=== PATIENT | female | born 1950 | race Two or more races ===

== ENCOUNTER → 2016-12-09 | Outpatient (CLI) | payer MEDICARE, OTHER ==
[~2016-12-09] MED LIST: APR50 PO; CALC600T PO; CALC667C PO; CARV12.579 PO; CNC30T PO; LEVO125T75 PO; NIFE30TA60 PO; PANT40TA4 PO; PRED5 PO; ROSU20TA PO; [UNRECOGNIZED DRUG - CODE] PO
--- NOTE | 2016-12-10 08:42 | RADRPT ---
PROCEDURE: XR right knee. CLINICAL INDICATION: Knee pain TECHNIQUE: AP weightbearing, PA weightbearing, lateral weightbearing and sunrise views are availab le for review. COMPARISON: None available FINDINGS: There is severe osteoarthrosis involving the lateral tibial femoral compartment and mild osteoarthro sis of having the patellofemoral compartment. This is associated with joint space narrowing, subchon dral sclerosis and osteophytosis. There is otherwise normal mineralization, architecture and alignment. No fractures are identified. No osseous lesions are identified. The soft tissues are unremarkable. IMPRESSION: Severe osteoarthrosis involving the lateral tibial femoral compartment and mild osteoarthrosis invol ving the patellofemoral compartment. RPTAT: HGDB .Shukri Sands MD, MD Date Time Electronically viewed and signed by .Shukri Sands MD, on 12/10/2016 08:42 .B/
== END | disposition home or self-care (01) ==
LOC: HKI 10:10
PROVIDERS: ATTEND Orthopaedic Surgery
DX: M17.11 Unilateral primary osteoarthritis, right knee (principal)
CPT/HCPCS: 73564; G0463

== ENCOUNTER 2017-01-08 13:50 | Inpatient (IN) | payer MEDICARE, OTHER ==
[~2017-01-08] VITALS: Ht 162.6 cm; Wt 55.3 kg
[2017-01-08 14:09] VITALS: BMI 20.8
[2017-01-14] VITALS (34 sets, daily range): BP systolic 121–148; BP diastolic 47–74; PULSE 52–75; RESP 8–57; Ht 162.6 cm; Wt 55.3 kg
[2017-01-14] MEDS ORDERED: ETOMIDATE 20 MG INJ ONE (07:00)
[2017-01-14] MEDS ORDERED: AMLO-147 PO (10:35)
[2017-01-14] MEDS ORDERED: PRED1TAB2 PO (10:36)
[2017-01-14] MEDS ORDERED: SIMV20TA PO (10:38)
[2017-01-14] MEDS ORDERED: FE F1TAB7 PO (10:39)
[2017-01-14] MEDS ORDERED: PROPOFOL 100 ML ONE (10:46)
[2017-01-14] MEDS ORDERED: NEOSTIGMINE 3 MG/3 ML SYRINGE ONE (10:46)
[2017-01-14] MEDS ORDERED: GLYCOPYRROLATE 1 MG INJ ONE (10:46)
[2017-01-14] MEDS ORDERED: FENTAnyl 50 MCG/ML VIAL ONE ×2 (10:46→11:56)
[2017-01-14] MEDS ORDERED: ROCURONIUM 50 MG INJ ONE (10:46)
[2017-01-14] MEDS ORDERED: MIDAZOLAM 1 MG/ML 2 ML INJ ONE (10:46)
[2017-01-14] MEDS ORDERED: LIDOCAINE 2% (SDV) 5 ML INJ ONE (10:46)
[2017-01-14] MEDS ORDERED: ONDANSETRON 4 MG INJ ONE (10:47)
[2017-01-14] MEDS ORDERED: DEXAMETHASONE 4 MG/ML 1 ML INJ ONE (10:47)
[2017-01-14] MEDS ORDERED: CELECOXIB 400 MG PO X1 DOSE PO ONE (11:00)
[2017-01-14] MEDS ORDERED: LACTATED RINGER'S 1,000 ML IV SCH (11:00)
[2017-01-14] MEDS ORDERED: oxyCODONE (CR) 10 MG TAB [oxyCONTIN] X1 DOSE PO ONE (11:00)
[2017-01-14] MEDS ORDERED: VANCOMYCIN 1 GM/NS 250 ML X1 BEFORE INCISION IVPB ONE (11:00)
[2017-01-14] MEDS ORDERED: SOD CHLORIDE 0.9% IV ONE (11:00)
[2017-01-14] MEDS ORDERED: PAIN COCKTAIL-CEFUROXIME IRR ONE ×7 (11:00)
[2017-01-14] MEDS ORDERED: TRANEXAMIC ACID IVPB ONE ×3 (11:00→21:30)
[2017-01-14] MEDS ORDERED: BUPIVACAINE LIPOSOME/PF 266 MG/20 ML VIAL INFIL ONE (11:00)
[2017-01-14] MEDS ORDERED: PREGABALIN 300 MG PO X1 PO ONE (11:00)
[2017-01-14] MEDS ORDERED: SOD CHLORIDE 0.9% IVPB ONE ×3 (11:00→21:30)
[2017-01-14] MEDS ORDERED: traMADOL 50 MG TAB X 1 DOSE PO ONE (11:00)
[2017-01-14] MEDS ORDERED: TRANEXAMIC ACID IV ONE (11:00)
[2017-01-14] MEDS ORDERED: PROPOFOL 20 ML ONE (11:55)
--- NOTE | 2017-01-14 12:03 | HPN ---
Date/Time of Note Date/Time of Note DATE: 01/14/17 TIME: 12:02 Interval H&P Admission Note Pt. seen H&P reviewed: No system changes No change from H&P by Dr. Jose Luis Villalta on 01/09/17 KIM BEAUCHAMP MD Jan 14, 2017 12:03
[2017-01-14] MEDS ORDERED: METOCLOPRAMIDE 10 MG INJ ONE (12:08)
[2017-01-14] MEDS ORDERED: SODIUM CL BACTERIOSTATIC 30 ML INJ ONE ×2 (12:17→12:44)
[2017-01-14] MEDS ORDERED: VANCOMYCIN 1 GM INJ ONE ×3 (12:18→14:02)
[2017-01-14] MEDS ORDERED: POLYMYXIN B 500000 UNIT INJ ONE (12:18)
[2017-01-14] MEDS ORDERED: CEFAZOLIN 1 GM INJ ONE (12:21)
[2017-01-14] MEDS ORDERED: METOCLOPRAMIDE 10 MG INJ IV ONE (12:30)
[2017-01-14] MEDS ORDERED: METOCLOPRAMIDE 10 MG INJ IM ONE (12:30)
[2017-01-14] MEDS ORDERED: EXPAREL NOTE (BUPIVICAINE LIPOSOMAL) XX SCH (13:00)
[2017-01-14] MEDS ORDERED: TOBRAMYCIN 1.2 GM POWDER ONE (13:12)
[2017-01-14] MEDS ORDERED: HYDROmorphONE (0.2 MG/ML) 10ML SYG IV PRN ×3 (13:30)
[2017-01-14] MEDS ORDERED: LABETALOL HCL 20MG INJ IV PRN (13:30)
[2017-01-14] MEDS ORDERED: DIPHENHYDRAMINE 50 MG INJ IV PRN (13:30)
[2017-01-14] MEDS ORDERED: hydrALAzine 20 MG INJ IV PRN (13:30)
[2017-01-14] MEDS ORDERED: FENTAnyl 50 MCG/ML VIAL IV PRN ×3 (13:30)
[2017-01-14] MEDS ORDERED: MIDAZOLAM 1 MG/ML 2 ML INJ IV PRN (13:30)
[2017-01-14] MEDS ORDERED: ONDANSETRON 4 MG INJ IV PRN (13:30)
[2017-01-14] MEDS ORDERED: TRIMETHOBENZAMIDE 100 MG/ML VIAL IM PRN (13:30)
[2017-01-14] MEDS ORDERED: EPHEDrine SULFATE 50 MG/5 ML SYG IV PRN (13:30)
[2017-01-14] MEDS ORDERED: BACITRACIN 50000 UNITS INJ IRR ONE (14:14)
--- NOTE | 2017-01-14 15:02 | RADRPT ---
PROCEDURE: Intraoperative imaging of the right knee with fluoroscopy. CLINICAL INDICATION: Right knee pain. Intraoperative. TECHNIQUE: 9 images of the right knee were obtained in the operating room with an image intensifie r. No radiologist was in attendance. 0.2 minutes of fluoroscopy time was used. COMPARISON: 01/08/2017. FINDINGS: Images demonstrate a total right knee arthroplasty in position with antibiotic beads and surgical dr guanako. IMPRESSION: 1. Intraoperative imaging of the right knee. RPTAT: QQ .Bigg Ro MD, MD Date Time Electronically viewed and signed by .Bigg Ro MD, MD on 01/14/2017 15:01 .R/
[2017-01-14] MEDS: LACTATED RINGER'S 1,000 ML IV SCH ×2 (15:09→22:57)
[2017-01-14] MEDS ORDERED: BACITRACIN 50000 UNITS INJ ONE (15:15)
--- NOTE | 2017-01-14 15:25 | PN ---
Date/Time of Note Date/Time of Note DATE: 01/14/17 TIME: 15:23 Assessment/Plan Assessment/Plan Assessment/Plan Stable in PACU, s/p right TKA -continue abx x 72 hours until final culture results -pain meds as needed -ASA/SCDs for DVT prophylaxis -OOB with PT -check AM labs -monitor drain -follow up on intra-operative culture results -d/c boyd in AM XR of the right knee is pending at this time Subjective 24 Hr Interval Summary Doing well in PACU. Moving lower extremities. Denies pain. Drowsy from anesthesia. Exam/Review of Systems Vital Signs Vitals Vital Signs Date Time Temp Pulse Resp B/P Pulse Ox O2 Delivery O2 Flow Rate FiO2 01/14/17 10:43 97.6 65 16 138/63 98 Intake and Output 01/13/17 01/13/17 01/14/17 15:00 23:00 07:00 Intake Total 0 ml Balance 0 ml Exam Free Text/Dictation Hemovac: minimal Dressing dry Incision clean, dry, and intact without redness or drainage Thigh soft 5/5 Quadriceps, Tibialis Anterior, EHL, Gastroc, Soleus, Peroneals Normal sensation Palpable DT/PT, CR <2 sec No distal edema Results Result Diagram: 01/14/17 1035 LUISA WYLIE PA-C Jan 14, 2017 15:25
--- NOTE | 2017-01-14 15:26 | OPR ---
Date/Time of Note Date/Time of Note DATE: 01/14/17 TIME: 15:24 Operative Report Free Text/Dictation Dictation # [id number] Procedure Date: Jan 15, 2017 Preoperative Diagnosis Right Knee OA Postoperative Diagnosis Same Operation Performed Right TKA Surgeon: KIM BEAUCHAMP MD marketing assistant manager: LUISA WYLIE PA-C Anesthesia: general, spinal Anesthesiologist: Guanakito Spann M.D. Tourniquet Time: 74 min Estimated Blood Loss: 50 - 100 ml's Specimens Bone and soft tissue, and aerobic and anaerobic culture x 2 Tubes/Drains Hemovac x 1 Complications: None Pt Condition Post Procedure: stable Disposition: PACU KIM BEAUCHAMP MD Jan 14, 2017 15:25
[2017-01-14] MEDS ORDERED: HYDROmorphONE 1 MG/ML SYG IV PRN (15:30)
[2017-01-14] MEDS ORDERED: DIPHENHYDRAMINE 25 MG CAP PO PRN (15:30)
[2017-01-14] MEDS ORDERED: oxyCODONE 5 MG TAB PO PRN (15:30)
[2017-01-14] MEDS ORDERED: BISACODYL 10 MG SUPP PR PRN (15:30)
[2017-01-14] MEDS ORDERED: ASPIRIN (EC) 325 MG TAB PO ONE (15:30)
[2017-01-14] MEDS ORDERED: NA PHOSPHATE/BIPHOS 133 ML ENEMA PR PRN (15:30)
[2017-01-14] MEDS ORDERED: MAGNESIUM HYDROXIDE 30ML CUP PO PRN (15:30)
[2017-01-14] MEDS ORDERED: NACL 0.9% 3 ML SYG IV SCH (15:30)
--- NOTE | 2017-01-14 15:49 | OPR ---
DATE OF OPERATION: 01/14/2017 PREOPERATIVE DIAGNOSIS: Right knee osteoarthritis. POSTOPERATIVE DIAGNOSIS: Right knee osteoarthritis. OPERATION PERFORMED: Right total knee arthroplasty. SURGEON: Kim Carroll MD SALES MANAGEMENT INTERN: MARCO A Collins COMPONENTS USED: DePuy size 3 TC3 femur with a neutral 5-degree bolt and a 16 mm diameter x 75 mm stem, size 2 M.B.T. revision tibial tray with a 13 mm x 60 mm stem, 17.5 mm polyethylene insert, and a 35 patellar button. ANESTHESIA: Spinal plus general endotracheal intubation, plus periarticular injection. ANESTHESIOLOGIST: Guanakito Spann MD TOURNIQUET TIME: 74 minutes. ESTIMATED BLOOD LOSS: 50 mL. INTRAVENOUS FLUIDS: 1200 mL of crystalloids. SPECIMENS: Bone and soft tissue. DRAINS: Hemovac x1. COMPLICATIONS: None. DISPOSITION: The patient tolerated the procedure well and was taken to the recovery room in stable condition. INDICATIONS: The patient is a 66-year-old woman who has had progressive worsening pain in the right knee with radiographic evidence of severe osteoarthritis. She has failed nonsurgical means of treatment to control her pain including activity modifications, pain medications, intra-articular injections and ambulatory assist devices. Despite these measures, she has had worsening pain. I felt she would benefit from a total knee arthroplasty The risks, benefits, and alternatives of the procedure were explained in detail to the patient. I explained the risks of the surgery to include but not be limited to, bleeding and possible need for blood transfusion; infection; pain; stiffness; neurovascular injury with possible numbness, weakness, and/or paralysis anywhere from the knee down to the toes; fracture; instability; dislocation; wear and/or loosening of the prosthesis and possible need for future revision; blood clots; pulmonary embolism; and anesthetic complications such as heart attack, stroke, GI bleed, pneumonia, and/or . Ample time was allowed for the patient to ask questions, all of which were addressed and answered. The patient understood the risks involved and wished to proceed. Informed consent was signed prior to the procedure. PROCEDURE: The patient's right knee was initialed with a marking pen in the preoperative area to identify the correct operative site. The patient was brought to the [facility] where a spinal anesthetic was administered. T he patient was then anesthetized and intubated. A Joe catheter was placed. A timeout was performed to confirm that the right leg was the correct operative site. The patient was given 2 g of Ancef within one hour prior to the procedure. A tourniquet was placed on the operative proximal thigh. The operative knee and lower extremity were prepped and draped in the usual sterile fashion. The operative lower extremity was elevated and exsanguinated with an Esmarch tourniquet. The proximal thigh tourniquet was inflated to 300 mmHg. The knee was flexed. A midline incision was made and carried down through the subcutaneous tissue and fat with sharp dissection. Limited medial and lateral flaps were raised. Approach was median parapatellar arthrotomy performed. Synovial fluid was normal in color and consistency. The patella was everted and the knee flexed. There were severe tricompartmental osteoarthritic changes noted. A medial release was performed at the joint line to the midcoronal plane. The ACL and PCL and remnants of the menisci were excised. The stepped drill was used to open up the femoral canal which was irrigated and sucked dry. The intramedullary guide bryce was passed up the femur, and the distal cutting block was pinned into place for a 6 degree valgus cut, taking 10 mm of bone off distally. The oscillating saw was used to make the cut. The tibia was subluxed anteriorly. The tibial cutoff jig was placed over the center of the talus distally and over the junction of the medial and middle third of the tibial tubercle proximally. The guide was pinned into place and the oscillating saw was used to make the cut. The tibia was sized. The extension gap was checked and accommodated a 17.5 mm spacer block with the knee in full extension. There was no varus or valgus instability. At this point, the femur was sized with the posterior referencing guide. Two holes were drilled in 3 degrees of external rotation. The two holes were in line with the transepicondylar axis, perpendicular to [place]'s line, and in line with the tibial cutoff jig brought up with the knee flexed 90 degrees and tensed with 2 lamina spreaders, suggesting the femoral rotation was correct. The four-in-one cutting block was pinned into place. The anterior and posterior cuts and chamfer cuts were made with the oscillating saw. The flexion gap was checked and accommodated the 17.5 mm spacer block at 90 degrees. There was no varus or valgus instability, suggesting the flexion and extension gaps were now equal. The central box was cut out on the femur. The tibia was drilled and punched in proper rotation. Trial components were placed into position with a trial insert. The patella was cut from 20 mm down to 12 mm and sized. Three holes were drilled and the trial button placed in position. With all the trials now in place, the knee was taken through range of motion and came to full extension as evidenced by the fact that with the foot on my abdomen and axial loading, there was no tendency for the knee to flex. The knee was able to be flexed to 125 degrees with good patellar tracking with no lateral tilt or subluxation. At this point, I was satisfied with the overall range of motion, stability, and patellar tracking. The trials were removed. The real components were opened. Two bags of cement were mixed, one with and one without premixed antibiotic. The knee was irrigated with antibiotic saline and sucked dry. Once the cement was in a doughy stage, the real components were cemented into place. The knee was held in full extension, and the patellar component was held with a patellar clamp. All excess cement was removed with curettes. As the cement was hardening, the synovial/capsular layer was infiltrated with a mixture of 150 mg of 0.5% Bupivacaine, 8 mg of Duramorph, 300 mcg of epinephrine, 30 mg of Toradol, 100 mcg of clonidine, 750 mg of cefuroxime and 86 mL of normal saline, followed by an injection of 266 mg of liposomal Bupivacaine. A Hemovac drain was placed in the deep portion of the wound and brought out the anterolateral thigh. Once the cement was completely hardened, the trial liner was removed, and the real insert was opened. The tourniquet was let down, and there was good hemostasis. The knee was then irrigated with a mixture of Betadine/saline and then antibiotic saline with pulsatile lavage. The real insert was impacted into the tibia and reduced onto to the femur. Upon removal of the trial insert, the medial epicondyle peeled back slightly. After the real insert was placed and reduced into position, a single 6.5 mm screw with a washer was placed to hold the medial epicondyle peel back into place. Stimulan beads with Vancomycin and Tobramycin were placed in the knee joint. The arthrotomy was closed with a few interrupted #1 Ethibond in a figure-of- eight fashion, and then closed in a watertight fashion with a running #2 Stratafix suture. Knee flexion was checked against gravity and came to 125 degrees. The subcutaneous layer was irrigated and closed with 2-0 Stratafix, and then 3-0 Vicryl and then luis on the skin. The wound was covered with an occlusive dressing, and secured with cast padding and a bias dressing. The drain was secured with 3-0 nylon. The sponge and needle counts were correct at the end of the case. The patient was then awakened, extubated, and taken to the recovery room in stable condition. Dictated By: KIM ALLEN/RONALD Conf#: [id number] DID#: [id number] MTDD
[2017-01-14 16:10] LABS: HEMATOCRIT 32.9 % (37.0-47.0); HEMOGLOBIN 10.5 g/dl (12.0-16.0)
--- NOTE | 2017-01-14 16:11 | RADRPT ---
PROCEDURE: Right knee radiographs. CLINICAL INDICATION: Right knee pain. Postop. TECHNIQUE: Two views. Frontal and lateral. COMPARISON: Intraoperative imaging done earlier the same day. FINDINGS: There is no fracture or dislocation. Anterior skin luis and surgical drain are noted. Antibiotic beads are noted anteriorly. There is a total right knee arthroplasty which appears satisfactory. There is no lytic or blastic lesion. There is no joint effusion. IMPRESSION: 1. Satisfactory postoperative appearance of the right knee. RPTAT: QQ .Bigg Ro MD, MD Date Time Electronically viewed and signed by .Bigg Ro MD, MD on 01/14/2017 16:10 .R/
[2017-01-14] MEDS: CEFAZOLIN 2 GM/50 ML (PMX) 50 ML IVPB SCH ×2 (16:18→23:30)
[2017-01-14 16:56] LABS: CALCIUM 8.8 mg/dl (8.4-10.2); CREATININE 4.7 mg/dl (0.44-1.00); POTASSIUM 5.2 mmol/L (3.5-5.1)
[2017-01-14 17:11] LABS: ADD UMIC YES; URINE BILIRUBIN (Dip) NEGATIVE (NEGATIVE); URINE BLOOD (Dip) NEGATIVE (NEGATIVE); URINE COLOR LT. YELLOW (YELLOW); URINE GLUCOSE (Dip) NEGATIVE (NEGATIVE); URINE KETONES (Dip) NEGATIVE (NEGATIVE); URINE LEUKOCYTE ESTERASE (Dip) NEGATIVE (NEGATIVE); URINE NITRITE (Dip) NEGATIVE (NEGATIVE); URINE TOTAL PROTEIN (Dip) 2+ (NEGATIVE); URINE UROBILINOGEN (Dip) 0.2 E.U./dL (0.1-1.0)
[2017-01-14 17:46] LABS: SQUAMOUS EPITHELIAL CELL,UR FEW; URINE RBCS 0-2 /HPF (0)
[2017-01-14] MEDS: CALCIUM ACETATE 667 MG CAP PO SCH ×2 (17:55→22:56)
[2017-01-14] MEDS: traMADol 50 MG TAB PO SCH (18:00)
[2017-01-14] MEDS: PANTOPRAZOLE (EC) 40 MG TAB PO SCH ×2 (18:00→22:55)
[2017-01-14] MEDS: DOCUSATE SODIUM 100 MG CAP PO SCH ×2 (21:00→22:55)
[2017-01-14] MEDS: PREGABALIN 25 MG CAP PO SCH ×2 (21:00→22:56)
[2017-01-14] MEDS: ATORVASTATIN 10 MG TAB PO SCH ×2 (21:00→22:56)
[2017-01-14] MEDS: ONDANSETRON 4 MG INJ IV PRN (21:35)
[2017-01-15] VITALS (10 sets, daily range): BP systolic 125–155; BP diastolic 60–75; PULSE 59–64; RESP 16–20
[2017-01-15] MEDS: traMADol 50 MG TAB PO SCH ×5 (00:55→20:53)
[2017-01-15] MEDS: CEFAZOLIN 2 GM/50 ML (PMX) 50 ML IVPB SCH (00:55)
[2017-01-15 05:46] LABS: HEMATOCRIT 30.7 % (37.0-47.0); HEMOGLOBIN 9.6 g/dl (12.0-16.0)
[2017-01-15 06:13] LABS: POTASSIUM 5.5 mmol/L (3.5-5.1)
[2017-01-15 06:16] LABS: CREATININE 4.91 mg/dl (0.44-1.00)
[2017-01-15 06:17] LABS: CALCIUM 9.2 mg/dl (8.4-10.2)
--- NOTE | 2017-01-15 07:46 | CONS ---
DATE OF ADMISSION: 01/14/2017 DATE OF CONSULTATION: 01/14/2017 TYPE OF CONSULTATION: Nephrology. REASON FOR CONSULTATION: End-stage renal disease. 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 The patient has had failure of her graft and is currently on dialysis with access of a left AV fistula. The patient is on dialysis twice weekly, last hemodialysis was ____ Friday. The patient also has a history of hypertension and arthritis, who was brought to [facility] and underwent electiv e total right knee arthroplasty. The patient's surgeon was Dr. Carroll. The patient had no intraope rative complications. Postoperatively, the patient is currently resting and is currently stable. D enies any fevers, chills, nausea, or vomiting. No shortness of breath. PAST MEDICAL HISTORY: As stated above, history of end-stage renal disease, history of hypertension, history of arthritis. PAST SURGICAL HISTORY: Status post kidney transplant ____ years ago. MEDICATIONS: The patient's medications have been reviewed. SOCIAL HISTORY: Lives at home. FAMILY HISTORY: No family history of kidney disease or heart disease. REVIEW OF SYSTEMS: A 14-point review of systems was conducted. Pertinent positives stated in HPI, otherwise negative. PHYSICAL EXAMINATION: VITAL SIGNS: Blood pressure is 140/58, pulse 72, respirations 16. HEENT: Head is normocephalic. Pupils reactive to light. NECK: Supple. HEART: Regular rate. LUNGS: Show diminished breath sounds at the base. ABDOMEN: Soft, nontender to palpation. No rebound or guarding. EXTREMITIES: Negative for clubbing, cyanosis or edema in the left leg. Right leg has a dressing in place. It is clean, dry and intact. DERMATOLOGIC: No rashes. MUSCULOSKELETAL: No joint effusions. NEUROLOGIC: Limited exam due to the patient's lack of cooperation. LABORATORY DATA: Shows sodium 139, potassium 5.2, chloride 99, bicarbonate 26, BUN 72, creatinine 4 .7. Hemoglobin 10.5, hematocrit 32.9. The patient's x-ray shows satisfactory postoperative appeara nce of the right knee. ASSESSMENT AND PLAN: This is a 66-year-old female who presents with: 1. End-stage renal disease. The patient is on dialysis Friday and Friday. Last hemodialysis was _ ___. The patient is currently euvolemic on exam; however, is hyperkalemic on laboratory data. We w ill order dialysis today for 2 hours on a 2K bath, calcium 2.5 with no ultrafiltration. 2. Anemia of chronic kidney disease. Hemoglobin levels are stable. We will continue to monitor. We will give Epogen with dialysis. 3. Hyperkalemia, secondary to end-stage renal disease. We will place the patient on a renal diet a nd will be dialyzed on a 2 potassium bath. 4. Mineral bone disorder. We will monitor calcium and phosphorus levels. 5. Hypertension. We will continue current blood pressure regimen. 6. Hypothyroidism. We will continue Synthroid. 7. Status post total right knee arthroplasty. The patient will be managed postoperatively by Dr. Mónica mortensen. We will continue pain control. 8. Dyslipidemia. Continue statin therapy. 9. History of cadaveric renal transplant. The patient is on low-dose prednisone. We will continue . Thank you, Dr. Carroll, for this interesting consultation. It will be a pleasure to follow the patie nt with you throughout the hospital course. Dictated By: LAMONT DUNHAM DO NR/RONALD Conf#: [id number] DID#: [id number]
[2017-01-15] MEDS: AMLODIPINE 10 MG TAB PO SCH (09:00)
--- NOTE | 2017-01-15 09:02 | PN ---
Date/Time of Note Date/Time of Note DATE: 01/15/17 TIME: 09:00 Assessment/Plan Lines/Catheters IV Catheter Type (from Nrsg): Peripheral IV Joe in Place (from Nrsg): Yes Assessment/Plan Assessment/Plan Stable POD #1, s/p right TKA -cont abx x 72 hours -pain meds as needed -OOB with PT -monitor drains -check AM labs -will undergo hemodialysis today -ARU eval -d/c planning. ARU versus [facility] upon discharge Subjective 24 Hr Interval Summary Doing well overnight. No acute events. Denies significant pain. VSS, afebrile. H &H stable but K+ is elevated. Will plan for dialysis today. Would like AR[facility] eval versus [facility] upon discharge. Exam/Review of Systems Vital Signs Vitals Vital Signs Date Time Temp Pulse Resp B/P Pulse Ox O2 Delivery O2 Flow Rate FiO2 01/15/17 08:18 98.1 68 16 133/61 99 01/14/17 20:00 Nasal Cannula 2.0 Intake and Output 01/14/17 01/14/17 01/15/17 15:00 23:00 07:00 Intake Total 205.5 ml 1005.5 ml 1105.5 ml Output Total 210 ml 220 ml Balance 205.5 ml 795.5 ml 885.5 ml Exam Free Text/Dictation Hemovac: 130cc Dressing dry Incision clean, dry, and intact without redness or drainage Thigh soft 5/5 Quadriceps, Tibialis Anterior, EHL, Gastroc, Soleus, Peroneals Normal sensation Palpable DT/PT, CR <2 sec No distal edema Results Result Diagram: 01/15/170 01/15/17 0430 LUISA WYLIE PA-C Jan 15, 2017 09:02
[2017-01-15 09:28] LABS: ADD UMIC YES; URINE BILIRUBIN (Dip) NEGATIVE (NEGATIVE); URINE BLOOD (Dip) NEGATIVE (NEGATIVE); URINE COLOR LT. YELLOW (YELLOW); URINE GLUCOSE (Dip) NEGATIVE (NEGATIVE); URINE KETONES (Dip) NEGATIVE (NEGATIVE); URINE LEUKOCYTE ESTERASE (Dip) TRACE (NEGATIVE); URINE NITRITE (Dip) NEGATIVE (NEGATIVE); URINE TOTAL PROTEIN (Dip) 1+ (NEGATIVE); URINE UROBILINOGEN (Dip) 0.2 E.U./dL (0.1-1.0)
[2017-01-15 09:39] LABS: SQUAMOUS EPITHELIAL CELL,UR OCCASIONAL; URINE RBCS NONE SEEN /HPF (0)
--- NOTE | 2017-01-15 10:00 | PN ---
DATE: 01/15/2017 SUBJECTIVE: The patient is stable. He has complaints of mild headache, but no other acute events n oted. No hemoptysis, hematemesis, or hematochezia. The patient yesterday refused hemodialysis. No other events noted. Patient's pain well controlled. OBJECTIVE: VITAL SIGNS: Blood pressure 125/60, respirations 20, pulse 66, temperature 97.8. HEENT: Head is normocephalic. NECK: Supple. HEART: Regular rate. LUNGS: Show diminished breath sounds at the base. ABDOMEN: Soft, nontender to palpation, no rebound or guarding. EXTREMITIES: Negative for clubbing, cyanosis, no edema on the left leg. Right lower extremity has dressing clean, dry, intact. NEUROLOGIC: No focal deficits. DERMATOLOGIC: No rashes. MUSCULOSKELETAL: Positive AV fistula in the left upper extremity with good thrill and bruit. LABORATORY DATA: Showed sodium 136, potassium 5.5, BUN 74, creatinine 4.91. White count 9.6, hemog lobin 30.7. ASSESSMENT AND PLAN: 1. End-stage renal disease. The patient is on dialysis Friday, Friday. Last hemodialysis Friday. Plan for dialysis today for hypokalemia with dialysis for 2 hours, 2K bath, calcium 2.5 with minima l ultrafiltration. 2. Anemia of chronic kidney disease. Will give Epogen with hemodialysis. Monitor H and H levels. 3. Hypokalemia secondary to end-stage renal disease. The patient will be dialyzed 2 potassium bath . Continue renal diet. 4. Mineral bone disorder. Monitor calcium and phosphorus levels. 5. History of cadaveric renal transplant. Continue low-dose prednisone. 6. Hypertension. Continue current blood pressure regimen. 7. Hypothyroidism. Continue Synthroid. 8. Dyslipidemia. Continue statin therapy. 9. Status post total right knee arthroplasty. The patient is clinically stable. Postop day #1. C ontinue pain control, PT, OT. 10. Neuropathy. Continue Lyrica. Dictated By: LAMONT SHEARER/RONALD Conf#: [id number] DID#: [id number]
[2017-01-15] MEDS: ONDANSETRON 4 MG INJ IV PRN (10:15)
[2017-01-15] MEDS: LACTATED RINGER'S 1,000 ML IV SCH ×3 (10:15→23:09)
[2017-01-15] MEDS: DOCUSATE SODIUM 100 MG CAP PO SCH ×2 (12:30→20:51)
[2017-01-15] MEDS: PREGABALIN 25 MG CAP PO SCH ×2 (12:30→20:51)
[2017-01-15] MEDS: ASPIRIN (EC) 325 MG TAB PO SCH ×2 (12:30→20:51)
[2017-01-15] MEDS: predniSONE 1 MG TAB PO SCH (12:30)
[2017-01-15] MEDS: CALCIUM ACETATE 667 MG CAP PO SCH ×3 (12:31→20:51)
[2017-01-15] MEDS: MULTIVIT/CA CARB/B CMPLX/FA TAB PO SCH (12:31)
[2017-01-15] MEDS: LEVOTHYROXINE 125 MCG TAB PO SCH (12:33)
[2017-01-15] MEDS: EPOETIN 10000 UNITS/1 ML INJ (ESRD) SC SCH ×2 (17:00→21:19)
[2017-01-15] MEDS: PANTOPRAZOLE (EC) 40 MG TAB PO SCH ×2 (18:00→20:51)
[2017-01-15] MEDS: ATORVASTATIN 10 MG TAB PO SCH (20:51)
[2017-01-16 05:26] LABS: HEMATOCRIT 28.5 % (37.0-47.0); HEMOGLOBIN 8.8 g/dl (12.0-16.0)
[2017-01-16 05:35] LABS: POTASSIUM 4.5 mmol/L (3.5-5.1)
[2017-01-16 05:38] LABS: CREATININE 3.99 mg/dl (0.44-1.00)
[2017-01-16 05:39] LABS: CALCIUM 9.1 mg/dl (8.4-10.2)
[2017-01-16] MEDS: PANTOPRAZOLE (EC) 40 MG TAB PO SCH ×2 (06:41→18:22)
[2017-01-16] MEDS: LEVOTHYROXINE 125 MCG TAB PO SCH (06:41)
[2017-01-16] MEDS: traMADol 50 MG TAB PO SCH ×5 (06:42→23:23)
[2017-01-16] MEDS: LACTATED RINGER'S 1,000 ML IV SCH ×3 (07:09→23:09)
[2017-01-16 08:07] VITALS: BP 159/73; RESP 15
[2017-01-16] MEDS: ASPIRIN (EC) 325 MG TAB PO SCH ×2 (10:07→20:52)
[2017-01-16] MEDS: DOCUSATE SODIUM 100 MG CAP PO SCH ×2 (10:07→20:50)
[2017-01-16] MEDS: PREGABALIN 25 MG CAP PO SCH ×2 (10:07→20:49)
[2017-01-16] MEDS: CALCIUM ACETATE 667 MG CAP PO SCH ×3 (10:07→18:22)
[2017-01-16] MEDS: MULTIVIT/CA CARB/B CMPLX/FA TAB PO SCH (10:07)
[2017-01-16] MEDS: predniSONE 1 MG TAB PO SCH (10:08)
[2017-01-16] MEDS: AMLODIPINE 10 MG TAB PO SCH (10:09)
--- NOTE | 2017-01-16 10:21 | PN ---
DATE: 01/16/2017 SUBJECTIVE: The patient is stable. Had hemodialysis yesterday, tolerated well. The patient contin ues to have pain, but is tolerating physical therapy. No other events noted. OBJECTIVE: VITAL SIGNS: Blood pressure is 115/73, respirations 15, pulse 64, temperature 98.5. HEENT: Head is normocephalic. NECK: Supple. HEART: Regular rate. LUNGS: Show diminished breath sounds at the bases. ABDOMEN: Soft, nontender to palpation without rebound or guarding. EXTREMITIES: Negative for clubbing, cyanosis. No edema on the left leg. Right knee has dressing c lean, dry and intact. NEUROLOGIC: No change in exam. MEDICATIONS: The patient's medications have been reviewed. LABORATORY DATA: Shows sodium 137, potassium 4.5, chloride 100, BUN 52, creatinine 3.99. Hemoglobi n 8.8. ASSESSMENT AND PLAN: 1. End-stage renal disease. The patient is on dialysis on Friday and Friday. The patient had hemo dialysis yesterday, tolerated it well. Anticipate next dialysis on Friday, tomorrow. 2. Anemia of chronic disease. Hemoglobin levels are low but stable. Continue Epogen. 3. Hyperkalemia, resolved after dialysis. Continue to monitor. Continue renal diet. 4. Mineral bone disorder. Continue to monitor calcium and phosphorus levels. 5. History of cadaveric renal transplant. Continue low-dose prednisone. 6. Hypertension. Continue current blood pressure regimen. 7. Hypothyroidism. Continue Synthroid. 8. Dyslipidemia. Continue statin therapy. 9. Status post total right knee arthroplasty. The patient is clinically stable, postop day #2. Co ntinue PT, OT. 10. Neuropathy. Continue Lyrica. Dictated By: LAMONT DUNHAM DO NR/NTS Conf#: [id number] DID#: [id number]
[2017-01-16] MEDS: CEFAZOLIN 1 GM/50 ML (PMX) 50 ML IVPB SCH (12:55)
--- NOTE | 2017-01-16 13:56 | PN ---
Date/Time of Note Date/Time of Note DATE: 01/16/17 TIME: 13:54 Assessment/Plan Lines/Catheters IV Catheter Type (from Nrsg): Saline Lock Joe in Place (from Nrsg): Yes Assessment/Plan Assessment/Plan Stable POD #2, s/p right TKA -continue abx until final cx results are negative -pain meds as needed -ASA/SCDs for DVT prophylaxis -OOB with PT -drain removed -check AM labs -ARU eval. Plan to transfer to [facility] or [facility] tomorrow Subjective 24 Hr Interval Summary Doing well. No acute overnight events. Denies significant pain. Ambulating with PT. Will plan to go to [facility] versus [facility] upon discharge. Exam/Review of Systems Vital Signs Vitals Vital Signs Date Time Temp Pulse Resp B/P Pulse Ox O2 Delivery O2 Flow Rate FiO2 01/16/17 08:15 Nasal Cannula 2.0 01/16/17 08:07 98.8 64 15 159/73 98 Intake and Output 01/15/17 01/15/17 01/16/17 15:00 23:00 07:00 Intake Total 980 ml Output Total 2047 ml 40 ml Balance -1067 ml -40 ml Exam Free Text/Dictation Hemovac: 40cc Dressing dry Incision clean, dry, and intact without redness or drainage Thigh soft 5/5 Quadriceps, Tibialis Anterior, EHL, Gastroc, Soleus, Peroneals Normal sensation Palpable DT/PT, CR <2 sec No distal edema Results Result Diagram: 01/16/1741901/16/17419 LUISA WYLIE PA-C Jan 16, 2017 13:56
--- NOTE | 2017-01-16 14:23 | PDOCDIS ---
Discharge Instructions DIAGNOSIS Discharge Diagnosis: s/p right TKA CONDITION Patient Condition: Good HOME CARE INSTRUCTIONS: Diet Instructions: Regular ACTIVITY: Activity Restrictions: Slowly Increase Activity Rest between Activity Avoid heavy lifting No Sexual Activity Do not operate Machinery Do not operate Power Tool Avoid Heavy Housework Keep Limb Elevated FOLLOW UP/APPOINTMENTS Appointments follow up in the office in 1 week OTHER ORDERS: Other Orders: S/P TKA Physical Therapy: Three times per week at home x 2 weeks Daily in Rehab/SNF WB STATUS: WBAT 1. Strengthening exercises for both upper and un-operated lower extremities. 2. Gait training with front wheeled walker 3. Active range of motion exercises to operative knee. 4. When not working on knee range of motion exercises, distal towel roll under operative ankle/distal calf to promote full extension. 5. DO NOT PUT ANYTHING BEHIND OPERATIVE KNEE!!! 6. Quadriceps and hamstring strengthening. 7. May switch to cane in contra lateral hand 6 weeks after surgery. 8. Physical Therapy can open case if nursing is not available. 9. Use Ice Machine as instructed from date of surgery while at rest 3X/day. 10. Patient requires mobile SCDs to reduce risk of developing DVT following TKA. Patient will use the mobile SCDs for 30 days postoperatively. Bathing assistance by home health aide twice weekly if Medicare patient. Occupational Therapy: Evaluation for assistive devices and ADL training. Wound Care: Keep incision dry & covered with Tegaderm until first visit with Dr. Carroll Anticoagulation Orders: Enteric Coated Aspirin 325 mg po bid x 6 weeks from date of surgery Follow-up:Call for an appointment with Dr. Carroll in 1 week after discharged from hospital at DME Orders: [place], 3-in-1 Commode, Polar ice machine, Mobile SCDs LUISA WYLIE PA-C Jan 16, 2017 14:23
[2017-01-16] MEDS ORDERED: TRAM50TA2 PO (14:25)
[2017-01-16] MEDS ORDERED: ASPI325T32 PO (14:25)
[2017-01-16] MEDS ORDERED: LYRI25 PO (14:25)
[2017-01-16] MEDS ORDERED: OXYC-481 PO (14:25)
[2017-01-16 20:47] VITALS: BP 155/65; RESP 18
[2017-01-16] MEDS: ATORVASTATIN 10 MG TAB PO SCH (20:49)
[2017-01-16 22:16] VITALS: BP 150/67; RESP 20
[2017-01-17] VITALS (8 sets, daily range): BP systolic 125–170; BP diastolic 61–72; PULSE 60–68; RESP 18
[2017-01-17 04:56] LABS: ADD SCAN DIFF NO
[2017-01-17 05:11] LABS: POTASSIUM 4.7 mmol/L (3.5-5.1)
[2017-01-17 05:14] LABS: CALCIUM 9.6 mg/dl (8.4-10.2); CREATININE 5.26 mg/dl (0.44-1.00)
[2017-01-17 05:22] LABS: MAGNESIUM 2.4 mg/dl (1.7-2.5)
[2017-01-17 05:23] LABS: ABNORMAL IP MESSAGE 1; BASOPHILS % 0.1 % (0.0-2.0); EOSINOPHILS # 0.1 10^3/ul (0.0-0.5); EOSINOPHILS % 0.8 % (0.0-7.0); LYMPHOCYTES # 0.8 10^3/ul (0.8-2.9); LYMPHOCYTES % 7.8 % (15.0-51.0); MEAN CORPUSCULAR HEMOGLOBIN 28.8 pg (29.0-33.0); MEAN CORPUSCULAR VOLUME 92.7 fl (82.0-101.0); MONOCYTE # 0.6 10^3/ul (0.3-0.9); MONOCYTES % 6.1 % (0.0-11.0); NEUTROPHIL # 7.4 10^3/ul (1.6-7.5); NEUTROPHILS % 75.9 % (39.0-77.0); PLATELET COUNT 109 10^3/UL (140-415); RED BLOOD COUNT 3.13 10^6/ul (4.20-5.40); RED CELL DISTRIBUTION WIDTH 13.9 % (11.5-14.5); WHITE BLOOD COUNT 9.8 10^3/ul (4.8-10.8)
[2017-01-17] MEDS: PANTOPRAZOLE (EC) 40 MG TAB PO SCH ×2 (05:28→17:04)
[2017-01-17] MEDS: oxyCODONE 5 MG TAB PO PRN ×2 (05:28→17:04)
[2017-01-17] MEDS: LEVOTHYROXINE 125 MCG TAB PO SCH (05:31)
[2017-01-17] MEDS: traMADol 50 MG TAB PO SCH ×2 (05:34→11:10)
[2017-01-17] MEDS: LACTATED RINGER'S 1,000 ML IV SCH ×3 (06:41→23:09)
[2017-01-17] MEDS: CALCIUM ACETATE 667 MG CAP PO SCH ×3 (08:29→17:05)
[2017-01-17] MEDS: predniSONE 1 MG TAB PO SCH (08:29)
[2017-01-17] MEDS: MULTIVIT/CA CARB/B CMPLX/FA TAB PO SCH (08:29)
[2017-01-17] MEDS: ASPIRIN (EC) 325 MG TAB PO SCH ×2 (08:29→20:45)
[2017-01-17] MEDS: AMLODIPINE 10 MG TAB PO SCH (08:30)
[2017-01-17] MEDS: DOCUSATE SODIUM 100 MG CAP PO SCH ×2 (08:30→20:44)
[2017-01-17] MEDS: PREGABALIN 25 MG CAP PO SCH ×2 (09:38→20:45)
--- NOTE | 2017-01-17 09:45 | PN ---
DATE: 01/17/2017 SUBJECTIVE: The patient is stable, no acute events overnight. No fevers, chills, nausea, vomiting. Patient scheduled for hemodialysis today. No other events noted. OBJECTIVE: VITAL SIGNS: Blood pressure 160/72, respiration 18, pulse 65, temperature 98.4. HEENT: Head is normocephalic. NECK: Supple. HEART: Regular rate. LUNGS: Show diminished breath sounds at the base. ABDOMEN: Soft, nontender to palpation without rebound or guarding. EXTREMITIES: Negative for clubbing, cyanosis. No edema. DERMATOLOGIC: No rashes. MUSCULOSKELETAL: No joint effusions. NEUROLOGIC: No change in exam. MEDICATIONS: The patient's medications have been reviewed. LABORATORY DATA: Shows sodium 136, potassium 4.7, BUN 73, creatinine of 5.26. White count 9.8, hem oglobin 9.0, hematocrit 29.0, platelet count is 109. ASSESSMENT AND PLAN: 1. End-stage renal disease. The patient had dialysis underwent Friday and Friday, plan for hemodia lysis today for 3 hours, 2K bath, calcium 2.5. 2. Anemia of end-stage renal disease. Hemoglobin levels are stable. Continue Epogen. 3. Hyperkalemia, resolved. 4. Mineral bone disorder. Continue to monitor calcium and phosphorus levels. 5. History of cadaveric renal transplant. The patient on low-dose prednisone. Continue. 6. Hypertension. Continue current blood pressure regimen. Continue ultrafiltration dialysis. 7. Hypothyroidism. Continue Synthroid. 8. Dyslipidemia. Continue statin therapy. 9. Status post total right knee arthroplasty. Continue PT, OT. 10. Neuropathy. Continue Lyrica. Dictated By: LAMONT SHEARER/RONALD Conf#: [id number] DID#: [id number]
--- NOTE | 2017-01-17 10:21 | PN ---
Date/Time of Note Date/Time of Note DATE: 01/17/17 TIME: 10:18 Assessment/Plan Lines/Catheters IV Catheter Type (from Nrsg): Saline Lock Joe in Place (from Nrsg): Yes Assessment/Plan Assessment/Plan Stable POD #3, s/p right TKA -pain meds as needed -ASA/SCDs for DVT prophylaxis -synovial culture results negative -OOB with PT -dressing changed -ARU with not accept patient -transfer to [facility] today -follow up the office in 1 week Subjective 24 Hr Interval Summary No acute overnight events. Denies significant pain. Plan for hemodialysis today. ARU eval states patient too high level of care. Will plan to d/c today to [facility]. Culture results show no growth up to this point. Exam/Review of Systems Vital Signs Vitals Vital Signs Date Time Temp Pulse Resp B/P Pulse Ox O2 Delivery O2 Flow Rate FiO2 01/17/17 09:30 Nasal Cannula 2.0 01/17/17 07:35 98.4 65 18 168/72 91 Intake and Output 01/16/17 01/16/17 01/17/17 15:00 23:00 07:00 Intake Total 480 ml 750 ml Output Total 0 ml Balance 480 ml 750 ml Exam Free Text/Dictation Dressing dry Incision clean, dry, and intact without redness or drainage Thigh soft 5/5 Quadriceps, Tibialis Anterior, EHL, Gastroc, Soleus, Peroneals Normal sensation Palpable DT/PT, CR <2 sec No distal edema Results Result Diagram: 01/17/17 0415 01/17/17 0415 LUISA WYLIE PA-C Jan 17, 2017 10:21
[2017-01-17] MEDS: CEFAZOLIN 1 GM/50 ML (PMX) 50 ML IVPB SCH (11:04)
--- NOTE | 2017-01-17 15:46 | DS ---
DATE OF ADMISSION: 01/14/2017 DATE OF DISCHARGE: 01/22/2017 CONDITION ON DISCHARGE: Stable ADMITTING DIAGNOSES: Advanced right knee osteoarthritis. DISCHARGE DIAGNOSIS: Status post right total knee arthroplasty. PROCEDURE PERFORMED: Right total knee arthroplasty. HOSPITAL COURSE: This is a 66-year-old female who was seen in the clinic initially complaining of right knee pain. X-rays were obtained and demonstrated advanced osteoarthritis and gross instability of the right knee and it was thought she would benefit from a right total knee arthroplasty. On 01/14/2017, the patient was admitted and taken to the operating room where she underwent a right total knee arthroplasty. There were no intraoperative complications. The patient tolerated the procedure well. She was taken to the recovery room in stable condition. Pain was well controlled with oral pain medication. She was started on aspirin and SCDs for DVT prophylaxis. She remained hemodynamically stable and neurovascularly intact throughout her hospital stay. On postoperative day 1, she began physical therapy and continued to make good progress. She was deemed clinically stable for discharge on postoperative day #3. Prior to discharge, the incision was inspected and noted to be clean, dry and intact. Dressing changes were done prior to the patient being discharged home. She had a prolonged hospital stay secondary to disposition issues. The patient was initially planning on going to [facility], but due to insurance issues, bed availability, and patients history of renal failure on dialysis, placement was difficult. Ultimately she decided to go home on POD #8. LABORATORY ANALYSIS UPON DISCHARGE: Hemoglobin 9.0, hematocrit 29.0. Chemistry panel showed an elevated BUN and creatinine. Patient has a known history of renal failure, otherwise chemistry panel was within normal limits. DISCHARGE MEDICATIONS: 1. Tramadol 50 mg. 2. Oxycodone 5 mg. 3. Aspirin 325 mg. 4. Lyrica 50 mg. Additionally, the patient is to resume all of her normal home medications. DISCHARGE INSTRUCTIONS: The patient will be discharged home in stable condition. She is to resume her normal diet. Activities include weightbearing as tolerated on right lower extremity. She will begin physical therapy with home health. She will be discharged with the medications noted above and is to resume all of her normal home medications. She is to call the office or go to the emergency room for any concerns including increased redness, swelling, drainage, fever or any concern regarding the operation or site of incision. Patient to follow up in the office in 1 week. Dictated By: LUISA WYLIE PA for KIM WARD/RONALD Conf#: [id number] DID#: [id number] CC: KIM BEAUCHAMP MD;*EndCC* MTDD
[2017-01-17] MEDS: ATORVASTATIN 10 MG TAB PO SCH (20:45)
[2017-01-17] MEDS: EPOETIN 10000 UNITS/1 ML INJ (ESRD) SC SCH (20:46)
[2017-01-18 05:03] LABS: HEMATOCRIT 28.3 % (37.0-47.0); HEMOGLOBIN 8.8 g/dl (12.0-16.0)
[2017-01-18 05:19] LABS: POTASSIUM 4.1 mmol/L (3.5-5.1)
[2017-01-18 05:22] LABS: CREATININE 4.15 mg/dl (0.44-1.00)
[2017-01-18 05:23] LABS: CALCIUM 9.2 mg/dl (8.4-10.2)
[2017-01-18] MEDS: PANTOPRAZOLE (EC) 40 MG TAB PO SCH ×3 (06:00→18:06)
[2017-01-18] MEDS: LACTATED RINGER'S 1,000 ML IV SCH ×4 (06:11→23:54)
[2017-01-18] MEDS: LEVOTHYROXINE 125 MCG TAB PO SCH (06:27)
[2017-01-18 08:20] VITALS: BP 177/77; RESP 20
[2017-01-18] MEDS: ASPIRIN (EC) 325 MG TAB PO SCH ×2 (08:25→21:48)
[2017-01-18] MEDS: DOCUSATE SODIUM 100 MG CAP PO SCH ×2 (08:25→21:00)
[2017-01-18] MEDS: MULTIVIT/CA CARB/B CMPLX/FA TAB PO SCH (08:25)
[2017-01-18] MEDS: AMLODIPINE 10 MG TAB PO SCH (08:26)
[2017-01-18] MEDS: predniSONE 1 MG TAB PO SCH (08:26)
[2017-01-18] MEDS: CALCIUM ACETATE 667 MG CAP PO SCH ×3 (08:26→18:06)
--- NOTE | 2017-01-18 08:41 | PN ---
DATE: SUBJECTIVE: The patient is stable, had hemodialysis yesterday and tolerated it well. No other acut e events noted. No hemoptysis, hematemesis or hematochezia. OBJECTIVE: VITAL SIGNS: Blood pressure is 132/62, respirations 18, pulse 68, temperature 98.1. HEENT: Head is normocephalic. NECK: Supple. HEART: Regular rate. LUNGS: Showed diminished breath sounds at the base. ABDOMEN: Soft, nontender to palpation. No rebound or guarding. EXTREMITIES: Negative for clubbing or cyanosis. No edema. DERMATOLOGIC: No rashes. MUSCULOSKELETAL: Have no joint effusion. NEUROLOGIC: No change in exam. MEDICATIONS: The patient's medications have been reviewed. LABORATORY DATA: Shows hemoglobin 8.8, hematocrit 28.3. Sodium 135, potassium 4.4, chloride 97, BU N 53, creatinine 4.15. ASSESSMENT AND PLAN: 1. End-stage renal disease. The patient is on dialysis Friday and Friday, had hemodialysis yesterd ay and tolerated it well. Anticipate next dialysis Friday. 2. Anemia of end-stage renal disease. Continue Epogen. 3. Hypokalemia. Resolved. 4. Mineral bone disorder. Continue to monitor calcium and phosphorus levels. 5. History of cataract transplant. Continue low-dose prednisone. 6. Hypertension. Continue the current blood pressure regimen. 7. Hypothyroidism. Continue Synthroid. 8. Dyslipidemia. Continue statin therapy. 9. Neuropathy. Continue Lyrica. 10. Status post total right knee arthroplasty. Continue PT, OT. Dictated By: LAMONT SHEARER/NTS Conf#: [id number] DID#: [id number]
--- NOTE | 2017-01-18 10:21 | PN ---
Date/Time of Note Date/Time of Note DATE: 01/18/17 TIME: 10:19 Assessment/Plan Lines/Catheters IV Catheter Type (from Nrsg): Saline Lock Joe in Place (from Nrsg): Yes Assessment/Plan Chief Complaint/Hosp Course POD # 4. Stable. -D/C to [facility] today if ok with Dr. Garduno -Pain meds -OOB with PT -ASA/SCDs -Dialysis Friday -F/u with me on 01/24/17 Problems: Subjective 24 Hr Interval Summary Resting comfortably. Walking well with PT. Ready to go to [facility] today. Exam/Review of Systems Vital Signs Vitals Vital Signs Date Time Temp Pulse Resp B/P Pulse Ox O2 Delivery O2 Flow Rate FiO2 01/18/17 08:20 98.0 75 20 177/77 94 01/17/17 21:56 Room Air 01/17/17 09:30 2.0 Intake and Output 01/17/17 01/17/17 01/18/17 15:00 23:00 07:00 Intake Total 600 ml 450 ml Balance 600 ml 450 ml Exam Free Text/Dictation Dressing dry Incision clean, dry, and intact without redness or drainage 5/5 Tibialis Anterior, EHL, Gastroc Soleus, Peroneals Normal sensation Palpable DP/PT, CR < 2 Sec No distal edema Results Result Diagram: 01/18/17 0424 01/18/17 0424 KIM BEAUCHAMP MD Jan 18, 2017 10:21
[2017-01-18 10:45] VITALS: BP 140/70; PULSE 70
--- NOTE | 2017-01-18 10:49 | DS ---
DATE OF ADMISSION: 01/14/2017 DATE OF DISCHARGE: 01/18/2017 ADMITTING DIAGNOSIS: Right knee osteoarthritis. DISCHARGE DIAGNOSIS: Status post right total knee arthroplasty. HOSPITAL COURSE: The patient was admitted, taken to the operating room where she underwent a right total knee arthroplasty. There were no complications. She tolerated the procedure well. She was t aken to the recovery room in stable condition. She was given routine perioperative intravenous anti biotics. Pain was controlled with oral pain medications. She does have a history of being on dialy sis and this was managed by the in-house hospital/pens and pencils repairer. She had dialysis here in the hospit al. She was seen by physical therapy and educated on gait training and use of a front-wheel walker. She was started on aspirin for DVT prophylaxis along with sequential compression devices. The barbie in was removed on postoperative day 1 and the incision inspected and noted to be clean, dry and inta ct with no redness or drainage. She did well with physical therapy, ambulating up and down the hernandez s. She remained afebrile, hemodynamically stable and neurovascularly intact. By postoperative day 4, she was doing well and ready to be discharged to home. DISCHARGE CONDITION: Good. DISPOSITION: Home. DISCHARGE MEDICATIONS: She will continue with: 1. Oxycodone 5 to 10 mg as needed for pain. 2. Enteric-coated aspirin 325 mg twice daily for DVT prophylaxis. For the remainder of the medications, please refer to the medication reconciliation form. DISCHARGE INSTRUCTIONS: She should keep the incision dry. She will continue with physical therapy for gait training and use of a front-wheel walker. She will follow up with me in the office on 12/27. Dictated By: KIM ALLEN/RONALD Conf#: [id number] DID#: [id number]
[2017-01-18] MEDS: PREGABALIN 25 MG CAP PO SCH ×2 (12:22→21:46)
[2017-01-18] MEDS: ATORVASTATIN 10 MG TAB PO SCH (21:48)
[2017-01-19 05:15] LABS: HEMATOCRIT 27.5 % (37.0-47.0); HEMOGLOBIN 8.8 g/dl (12.0-16.0); POTASSIUM 4.1 mmol/L (3.5-5.1)
[2017-01-19 05:17] LABS: CREATININE 4.73 mg/dl (0.44-1.00)
[2017-01-19 05:18] LABS: CALCIUM 9.4 mg/dl (8.4-10.2)
[2017-01-19] MEDS: LEVOTHYROXINE 125 MCG TAB PO SCH (06:34)
[2017-01-19] MEDS: PANTOPRAZOLE (EC) 40 MG TAB PO SCH ×2 (06:34→18:05)
[2017-01-19 08:50] VITALS: BP 136/64; RESP 18
[2017-01-19] MEDS: PREGABALIN 25 MG CAP PO SCH ×3 (09:00→20:59)
[2017-01-19] MEDS: DOCUSATE SODIUM 100 MG CAP PO SCH ×2 (09:13→21:00)
[2017-01-19] MEDS: predniSONE 1 MG TAB PO SCH (09:13)
[2017-01-19] MEDS: LINAGLIPTIN 5 MG TABLET PO SCH (09:13)
[2017-01-19] MEDS: MULTIVIT/CA CARB/B CMPLX/FA TAB PO SCH (09:14)
[2017-01-19] MEDS: CALCIUM ACETATE 667 MG CAP PO SCH ×3 (09:14→18:05)
[2017-01-19] MEDS: ASPIRIN (EC) 325 MG TAB PO SCH ×2 (09:14→20:59)
[2017-01-19] MEDS: AMLODIPINE 10 MG TAB PO SCH (09:15)
--- NOTE | 2017-01-19 09:18 | PN ---
DATE: 01/19/2017 SUBJECTIVE: The patient is stable, no acute events overnight. No fevers, chills, nausea, vomiting. No shortness breath. OBJECTIVE: VITAL SIGNS: Blood pressure is 140/79, respirations 20, pulse 75, temperature 98.6. HEENT: Head is normocephalic. NECK: Supple. HEART: Regular rate. LUNGS: Show diminished breath sounds at base. ABDOMEN: Soft, nontender to palpation without rebound or guarding. EXTREMITIES: Negative for clubbing, cyanosis, no edema in the left leg. Right knee has dressing cl chirag, dry, intact. NEUROLOGIC: No change in exam. MEDICATIONS: The patient's medications have been reviewed. LABORATORY DATA: Shows sodium 132, potassium 4.1, BUN 70, creatinine 4.73. Hemoglobin 8.8, hematoc rit 27.5. ASSESSMENT AND PLAN: 1. End-stage renal disease. The patient is on dialysis on Friday and Friday. The patient's next h emodialysis will be tomorrow. We will dialyze for 3 hours and 3 K bath. 2. Anemia of chronic kidney disease. Continue to monitor hemoglobin and hematocrit levels. Contin ue Epogen. 3. Hyponatremia secondary to end-stage renal disease. We will limit free water intake. 4. Mineral bone disorder. Continue to monitor calcium and phosphorus levels. 5. History of renal transplant. Continue low-dose prednisone. 6. Hypertension. Continue current blood pressure regimen. 7. Hypothyroidism. Continue Synthroid. 8. Dyslipidemia. Continue statin therapy. 9. Neuropathy. Continue Lyrica. 10. Status post total right knee arthroplasty. Continue PT and OT. Dictated By: LAMONT SHEARER/RONALD Conf#: [id number] DID#: [id number]
[2017-01-19] MEDS: oxyCODONE 5 MG TAB PO PRN ×2 (09:19→18:05)
--- NOTE | 2017-01-19 10:17 | PN ---
Date/Time of Note Date/Time of Note DATE: 01/19/17 TIME: 10:16 Assessment/Plan Lines/Catheters IV Catheter Type (from Nrsg): Saline Lock Joe in Place (from Nrsg): Yes Assessment/Plan Chief Complaint/Hosp Course POD # 5. Stable. -D/C to [facility] when bed available. -OOB with PT -ASA/SCDs -Dialysis Friday -F/u with me on 01/24/17 Problems: Subjective 24 Hr Interval Summary Comfortable. Minimal pain. Awaiting approval to transfer to [facility]. Exam/Review of Systems Vital Signs Vitals Vital Signs Date Time Temp Pulse Resp B/P Pulse Ox O2 Delivery O2 Flow Rate FiO2 01/19/17 08:50 98.6 73 18 136/64 95 01/17/17 21:56 Room Air 01/17/17 09:30 2.0 Intake and Output 01/18/17 01/18/17 01/19/17 15:00 23:00 07:00 Intake Total 600 ml 950 ml Output Total 900 ml Balance 600 ml 50 ml Exam Free Text/Dictation Dressing dry Incision clean, dry, and intact without redness or drainage 5/5 Tibialis Anterior, EHL, Gastroc Soleus, Peroneals Normal sensation Palpable DP/PT, CR < 2 Sec No distal edema Results Result Diagram: 01/19/1742001/19/17420 KIM BEAUCHAMP MD Jan 19, 2017 10:17
[2017-01-19] MEDS: LACTATED RINGER'S 1,000 ML IV SCH ×2 (15:09→21:04)
[2017-01-19 20:00] VITALS: BP 135/62; RESP 16
[2017-01-19] MEDS: ATORVASTATIN 10 MG TAB PO SCH (21:00)
[2017-01-20] VITALS (10 sets, daily range): BP systolic 123–144; BP diastolic 60–81; PULSE 65–76; RESP 17–19
[2017-01-20] MEDS: LACTATED RINGER'S 1,000 ML IV SCH ×3 (03:46→23:09)
[2017-01-20] MEDS: PANTOPRAZOLE (EC) 40 MG TAB PO SCH ×2 (04:47→17:52)
[2017-01-20] MEDS: LEVOTHYROXINE 125 MCG TAB PO SCH (04:47)
[2017-01-20 05:46] LABS: HEMATOCRIT 27.1 % (37.0-47.0); HEMOGLOBIN 8.5 g/dl (12.0-16.0)
[2017-01-20 06:37] LABS: POTASSIUM 4.2 mmol/L (3.5-5.1)
[2017-01-20 06:40] LABS: CREATININE 5.98 mg/dl (0.44-1.00)
[2017-01-20 06:41] LABS: CALCIUM 9.6 mg/dl (8.4-10.2)
[2017-01-20] MEDS: PREGABALIN 25 MG CAP PO SCH ×2 (08:45→20:53)
[2017-01-20] MEDS: LINAGLIPTIN 5 MG TABLET PO SCH (08:45)
[2017-01-20] MEDS: DOCUSATE SODIUM 100 MG CAP PO SCH ×2 (08:45→20:49)
[2017-01-20] MEDS: ASPIRIN (EC) 325 MG TAB PO SCH ×2 (08:45→20:50)
[2017-01-20] MEDS: MULTIVIT/CA CARB/B CMPLX/FA TAB PO SCH (08:46)
[2017-01-20] MEDS: predniSONE 1 MG TAB PO SCH (08:46)
[2017-01-20] MEDS: CALCIUM ACETATE 667 MG CAP PO SCH ×3 (08:46→17:52)
--- NOTE | 2017-01-20 08:48 | PN ---
Date/Time of Note Date/Time of Note DATE: 01/20/17 TIME: 08:46 Assessment/Plan Lines/Catheters IV Catheter Type (from Nrsg): Saline Lock Joe in Place (from Nrsg): No Assessment/Plan Assessment/Plan Stable POD #6, s/p right TKA -pain meds as needed -ASA/SCDs for DVT prophylaxis -OOB with PT -hemodialysis today -dressing changed -discharge planning. Stable for transfer. Awaiting final SNF placement -follow up in the office in 1 week Subjective 24 Hr Interval Summary No acute overnight events. Mild pain. Plan to undergo dialysis today. VSS, afebrile. Patient is discharged but we are awaiting final SNF placement. Exam/Review of Systems Vital Signs Vitals Vital Signs Date Time Temp Pulse Resp B/P Pulse Ox O2 Delivery O2 Flow Rate FiO2 01/20/17 08:02 98.8 70 17 144/64 94 01/19/17 08:00 Nasal Cannula 2.0 Intake and Output 01/19/17 01/19/17 01/20/17 15:00 23:00 07:00 Intake Total 860 ml 120 ml Output Total 300 ml Balance 860 ml -180 ml Exam Free Text/Dictation Dressing dry Incision clean, dry, and intact without redness or drainage Thigh soft 5/5 Quadriceps, Tibialis Anterior, EHL, Gastroc, Soleus, Peroneals Normal sensation Palpable DT/PT, CR <2 sec No distal edema Results Result Diagram: 01/20/1741901/20/17419 LUISA WYLIE PA-C Jan 20, 2017 08:48
[2017-01-20] MEDS: AMLODIPINE 10 MG TAB PO SCH (09:00)
--- NOTE | 2017-01-20 09:17 | PN ---
DATE: 01/20/2017 PHYSICAL EXAMINATION: HEENT: Head is normocephalic. NECK: Supple. HEART: Regular rate. LUNGS: Show diminished breath sounds at the base. ABDOMEN: Soft, nontender to palpation without rebound or guarding. EXTREMITIES: Negative for clubbing, cyanosis, no edema. DERMATOLOGIC: No rashes. MUSCULOSKELETAL: No joint effusions. NEUROLOGIC: No change in exam. MEDICATIONS: The patient's medications have been reviewed. LABORATORY DATA: Has been reviewed, shows a sodium 133, BUN 86, creatinine 5.98. ASSESSMENT AND PLAN: 1. End-stage renal disease. The patient's dialysis on Friday, Friday. Plan for dialysis today for 3 hours, 2K bath, calcium 2.5. 2. Anemia of chronic disease. Continue to monitor H and H levels. Continue Epogen. 3. Hyponatremia secondary to end-stage renal disease. Patient will be dialyzed 140 sodium bath. 4. Mineral bone disorder. Continue to monitor calcium and phosphorus levels. 5. History of renal transplants. Continue low-dose prednisone. 6. Hypertension. Continue blood pressure regimen. 7. Status post total right knee arthroplasty. Continue PT, OT. DVT prophylaxis. 8. Hypothyroidism. Continue Synthroid. 8. Dyslipidemia. Continue statin therapy. 9. Neuropathy. Continue Lyrica. Dictated By: LAMONT SHEARER/RONALD Conf#: [id number] DID#: [id number]
[2017-01-20] MEDS ORDERED: GLUCOSE GEL 15 GRAM TUBE BUCCAL PRN (12:30)
[2017-01-20] MEDS ORDERED: GLUCAGON 1 MG INJ IM PRN (12:30)
[2017-01-20] MEDS ORDERED: GLUCOSE GEL 15 GRAM TUBE PO PRN ×2 (12:30)
[2017-01-20] MEDS ORDERED: DEXTROSE 50% 50 ML SYRINGE IV PRN ×2 (12:30)
[2017-01-20] MEDS: oxyCODONE 5 MG TAB PO PRN ×2 (13:09→17:51)
[2017-01-20 14:29] LABS: HAAIG REFLEX REFLEX FILED
[2017-01-20 15:25] LABS: HEPATITIS B CORE ANTIBODY NEGATIVE (NEGATIVE)
[2017-01-20] MEDS: EPOETIN 10000 UNITS/1 ML INJ (ESRD) SC SCH (18:31)
--- NOTE | 2017-01-20 19:06 | RADRPT ---
PROCEDURE: XR Chest. CLINICAL INDICATION: Positive PPD. TECHNIQUE: Single frontal view. COMPARISON: None. FINDINGS: The lungs are clear. The heart is enlarged. There is calcification in the aorta consistent with atherosclerosis. There are sternal wires. There is no pleural effusion. There is no pneumothorax. IMPRESSION: 1. No evidence of active tuberculosis. 2. Cardiomegaly and atherosclerosis. 3. Previous median sternotomy. RPTAT: QQ .Bigg Ro MD, MD Date Time Electronically viewed and signed by .Bigg Ro MD, MD on 01/20/2017 19:06 .R/
[2017-01-20] MEDS: ATORVASTATIN 10 MG TAB PO SCH (20:50)
[2017-01-21 05:23] LABS: HEMATOCRIT 26.1 % (37.0-47.0); HEMOGLOBIN 8.3 g/dl (12.0-16.0)
[2017-01-21] MEDS: PANTOPRAZOLE (EC) 40 MG TAB PO SCH ×2 (05:29→17:37)
[2017-01-21] MEDS: LACTATED RINGER'S 1,000 ML IV SCH ×3 (07:09→23:09)
[2017-01-21 07:16] LABS: POTASSIUM 3.3 mmol/L (3.5-5.1)
[2017-01-21 07:19] LABS: CREATININE 3.21 mg/dl (0.44-1.00)
[2017-01-21 07:20] LABS: CALCIUM 8.8 mg/dl (8.4-10.2)
[2017-01-21] MEDS ORDERED: POTASSIUM CHLORIDE (SR) 20 MEQ TAB PO STA (08:30)
[2017-01-21 08:56] VITALS: BP 127/60; PULSE 67; RESP 20
[2017-01-21] MEDS: MULTIVIT/CA CARB/B CMPLX/FA TAB PO SCH (09:02)
[2017-01-21] MEDS: DOCUSATE SODIUM 100 MG CAP PO SCH ×2 (09:02→21:31)
[2017-01-21] MEDS: CALCIUM ACETATE 667 MG CAP PO SCH ×3 (09:02→17:37)
[2017-01-21] MEDS: LEVOTHYROXINE 125 MCG TAB PO SCH (09:03)
[2017-01-21] MEDS: PREGABALIN 25 MG CAP PO SCH ×2 (09:03→21:31)
[2017-01-21] MEDS: ASPIRIN (EC) 325 MG TAB PO SCH ×2 (09:04→21:31)
[2017-01-21] MEDS: LINAGLIPTIN 5 MG TABLET PO SCH (09:04)
[2017-01-21] MEDS: predniSONE 1 MG TAB PO SCH (09:04)
[2017-01-21] MEDS: AMLODIPINE 10 MG TAB PO SCH (09:04)
[2017-01-21 09:10] VITALS: BP 127/60; RESP 18
--- NOTE | 2017-01-21 10:38 | PN ---
Date/Time of Note Date/Time of Note DATE: 01/21/17 TIME: 10:36 Assessment/Plan Lines/Catheters IV Catheter Type (from Nrsg): Saline Lock Joe in Place (from Nrsg): No Assessment/Plan Assessment/Plan Stable POD #7, s/p right TKA -pain meds as needed -ASA/SCDs for DVT prophylaxis -OOB with PT -hemodialysis done yesterday -dressing changed -discharge to [facility] today -follow up in the office in 1 week Subjective 24 Hr Interval Summary No acute overnight events. Awaiting final auth for SNF placement. Moderate pain , controlled with oral pain medication. Spoke with anesthesiologist and critical care who states patient will go to [facility] after hepatitis panel results. Exam/Review of Systems Vital Signs Vitals Vital Signs Date Time Temp Pulse Resp B/P Pulse Ox O2 Delivery O2 Flow Rate FiO2 01/21/17 09:10 98.9 87 18 127/60 83 01/21/17 08:56 Room Air 01/20/17 08:00 2.0 Intake and Output 01/20/17 01/20/17 01/21/17 15:00 23:00 07:00 Intake Total 1440 ml 240 ml Output Total 2400 ml 1000 ml Balance -960 ml -760 ml Exam Free Text/Dictation Dressing dry Incision clean, dry, and intact without redness or drainage Thigh soft 5/5 Quadriceps, Tibialis Anterior, EHL, Gastroc, Soleus, Peroneals Normal sensation Palpable DT/PT, CR <2 sec No distal edema Results Result Diagram: 01/21/1742901/21/17429 LUISA WYLIE PA-C Jan 21, 2017 10:38
--- NOTE | 2017-01-21 11:51 | PN ---
DATE: 01/21/2017 SUBJECTIVE: The patient had hemodialysis yesterday, tolerated it well without complications. No fe vers, chills, nausea, vomiting. OBJECTIVE: VITAL SIGNS: Blood pressure 126/60, respirations 19, pulse 68, temperature 98.4. HEENT: Head is normocephalic. NECK: Supple. HEART: Regular rate. LUNGS: Show diminished breath sounds at the base. ABDOMEN: Soft, nontender to palpation, no rebound or guarding. EXTREMITIES: Negative for clubbing, cyanosis, no edema. DERMATOLOGIC: No rashes. MUSCULOSKELETAL: No joint effusions. NEUROLOGIC: No change in exam. MEDICATIONS: Reviewed. LABORATORY DATA: Sodium 133, potassium ____, BUN 45, creatinine 3.21, hemoglobin 8.3, hematocrit 26 .1. ASSESSMENT AND PLAN: 1. En-stage renal disease. The patient underwent dialysis Friday and Friday. The patient had hemo dialysis yesterday, tolerated it well. Anticipate next dialysis on Friday. 2. Anemia of chronic disease. Continue to monitor hemoglobin and hematocrit levels. Continue Epog en. 3. Hyponatremia secondary to end-stage renal disease. The patient is encouraged to limit free wate r intake. 4. Hypokalemia, replete potassium chloride. 5. Metabolic disorder. Continue to monitor calcium and phosphorus levels. 6. History of cadaveric renal transplant. The patient is currently on low-dose prednisone. Contin ue. 7. Hypertension. Continue current blood pressure regimen. 8. Status post total right knee arthroplasty. Continue PT, OT. 9. Hypothyroidism. Continue Synthroid. 10. Dyslipidemia. Continue statin therapy. 11. Neuropathy. Continue Lyrica. Dictated By: LAMONT SHEARER/RONALD Conf#: [id number] DID#: [id number]
[2017-01-21 19:58] VITALS: BP 129/58; RESP 20
[2017-01-21] MEDS: ATORVASTATIN 10 MG TAB PO SCH (21:31)
[2017-01-22 05:27] LABS: CREATININE 4.62 mg/dl (0.44-1.00)
[2017-01-22 05:28] LABS: CALCIUM 9.1 mg/dl (8.4-10.2)
[2017-01-22] MEDS: PANTOPRAZOLE (EC) 40 MG TAB PO SCH ×2 (05:52→17:58)
[2017-01-22] MEDS: LEVOTHYROXINE 125 MCG TAB PO SCH (05:53)
[2017-01-22 07:00] VITALS: BP 163/70; RESP 20
[2017-01-22] MEDS: LACTATED RINGER'S 1,000 ML IV SCH ×2 (07:09→15:09)
--- NOTE | 2017-01-22 08:40 | PN ---
DATE: 01/22/2017 SUBJECTIVE: The patient is stable, no acute events overnight. No fevers, chills, nausea, vomiting. OBJECTIVE: VITAL SIGNS: Blood pressure 163/70, respirations 20, pulse 67, temperature 98.7. HEENT: Head is normocephalic. NECK: Supple. HEART: Regular rate. LUNGS: Show diminished breath sounds at base. ABDOMEN: Soft, nontender to palpation without rebound or guarding. EXTREMITIES: Negative for clubbing, cyanosis, no edema on the left leg. Right leg has dressings cl chirag, dry and intact. DERMATOLOGIC: No rashes. MUSCULOSKELETAL: No joint effusions. NEUROLOGIC: No change. MEDICATIONS: Have been reviewed. LABORATORY DATA: Shows sodium 133, potassium 4.0, chloride 94, BUN 72, creatinine 4.62. ASSESSMENT AND PLAN: 1. End-stage renal disease. The patient is on dialysis Friday and Friday. Anticipate next hemodial ysis on Friday. Continue to monitor renal function. 2. Anemia of chronic disease. Continue to monitor hemoglobin and hematocrit levels. Continue Epog en. 3. Hyponatremia secondary to end-stage renal disease. Continue to limit free water intake. 4. Hypokalemia, improved. 5. Mineral bone disorder. Continue to monitor calcium and phosphorus levels. 6. History of cadaveric renal transplant. Continue low-dose prednisone. 7. Hypertension. Continue current blood pressure regimen. 8. Status post total right knee arthroplasty. Continue PT, OT. 9. Hypothyroidism. Continue Synthroid. 10. Dyslipidemia. Continue statin therapy. 11. Neuropathy. Continue Lyrica. Dictated By: LAMONT SHEARER/RONALD Conf#: [id number] DID#: [id number]
--- NOTE | 2017-01-22 09:07 | PN ---
Date/Time of Note Date/Time of Note DATE: 01/22/17 TIME: 09:06 Assessment/Plan Lines/Catheters IV Catheter Type (from Nrsg): Saline [place] in Place (from Nrsg): No Assessment/Plan Assessment/Plan Stable POD #8, s/p right TKA -pain meds as needed -ASA/SCDs for DVT prophylaxis -OOB with PT -discharge to [facility] today per healthcare science specialist -follow up in the office on Friday Subjective 24 Hr Interval Summary No acute overnight events. Complaining of mild knee pain. Has been discharged for several days but having delays to do SNF placement. Exam/Review of Systems Vital Signs Vitals Vital Signs Date Time Temp Pulse Resp B/P Pulse Ox O2 Delivery O2 Flow Rate FiO2 01/22/17 07:00 98.7 67 20 163/70 97 01/21/17 08:56 Room Air 01/20/17 08:00 2.0 Intake and Output 01/21/17 01/21/17 01/22/17 15:00 23:00 07:00 Intake Total 600 ml 400 ml Output Total 450 ml Balance 600 ml -50 ml Exam Free Text/Dictation Dressing dry Incision clean, dry, and intact without redness or drainage Thigh soft 5/5 Quadriceps, Tibialis Anterior, EHL, Gastroc, Soleus, Peroneals Normal sensation Palpable DT/PT, CR <2 sec No distal edema Results Result Diagram: 01/21/17 0430 01/22/17 0435 LUISA WYLIE PA-C Jan 22, 2017 09:07
[2017-01-22] MEDS: PREGABALIN 25 MG CAP PO SCH (09:34)
[2017-01-22] MEDS: AMLODIPINE 10 MG TAB PO SCH (09:35)
[2017-01-22] MEDS: DOCUSATE SODIUM 100 MG CAP PO SCH (09:35)
[2017-01-22] MEDS: LINAGLIPTIN 5 MG TABLET PO SCH (09:35)
[2017-01-22] MEDS: MULTIVIT/CA CARB/B CMPLX/FA TAB PO SCH (09:35)
[2017-01-22] MEDS: predniSONE 1 MG TAB PO SCH (09:35)
[2017-01-22] MEDS: CALCIUM ACETATE 667 MG CAP PO SCH ×3 (09:36→17:59)
[2017-01-22] MEDS: ASPIRIN (EC) 325 MG TAB PO SCH (09:36)
[2017-01-22] MEDS: EPOETIN 10000 UNITS/1 ML INJ (ESRD) SC SCH (18:00)
[2017-01-22] MEDS: oxyCODONE 5 MG TAB PO PRN (18:03)
[2017-01-22] MEDS ORDERED: PREGABALIN 50 MG CAP PO SCH (21:00)
== END 2017-01-22 19:35 | DRG 469 ==
LOC: REC 13:50 → UNDOADMIN 13:50 → REC 01-14 09:51 → MS1 01-14 17:30
PROVIDERS: ADMIT Orthopaedic Surgery; ATTEND Orthopaedic Surgery
PROC: 0SRC0J9 Replacement of Right Knee Joint with Synthetic Substitute, Cemented, Open Approach (ICD-10-PCS; principal; 2017-01-15)
PROC: 5A1D60Z (ICD-10-PCS; 2017-01-15)
DX: M17.11 Unilateral primary osteoarthritis, right knee (principal); N18.6 End stage renal disease; I12.0 Hypertensive chronic kidney disease with stage 5 chronic kidney disease or end stage renal disease; Z94.0 Kidney transplant status; Z99.2 Dependence on renal dialysis; D63.1 Anemia in chronic kidney disease; E87.5 Hyperkalemia; E03.9 Hypothyroidism, unspecified; E78.5 Hyperlipidemia, unspecified
CPT/HCPCS: 71010; 73560; 73562; 80048; 81001; 81003; 82962; 83735; 84100; 84132; 85014; 85018; 85025; 86704; 86709; 86803; 86850; 86900; 86901; 86920; 87070; 87075; 87081; 87086; 87340; 88304; 88311; 90935; 97110; 97116; 97162; 97166; 97530; C1776; Z7610; C1713; C9290; J0171; J0690; J0697; J0735; J0886; J1100; J1885; J2250; J2274; J2405; J2710; J2765; J3010; J3370; J7120; J7512

== ENCOUNTER → 2017-01-08 | Outpatient (CLI) | payer MEDICARE, OTHER ==
--- NOTE | 2017-01-08 17:50 | RADRPT ---
PROCEDURE: Limited x-ray of both lower extremities. CLINICAL INDICATION: Bilateral leg pain. TECHNIQUE: Single frontal view of both lower extremities was obtained from the hips to the calves. COMPARISON: Right knee radiographs dated 12/09/2016. FINDINGS: The hips are grossly normal. Surgical clips are present in the left side of the pelvis. There are severe degenerative changes of the right knee with associated valgus deformity due to late ral joint compartment narrowing. There are mild degenerative changes of the left knee with normal a lignment. IMPRESSION: 1. Severe degenerative changes of the right knee with valgus deformity. RPTAT: QQ .Bigg Ro MD, MD Date Time Electronically viewed and signed by .Bigg Ro MD, MD on 01/08/2017 17:50 .R/
== END | disposition home or self-care (01) ==
LOC: HKI 09:43
PROVIDERS: ATTEND Orthopaedic Surgery
DX: Z01.818 Encounter for other preprocedural examination (principal); M17.11 Unilateral primary osteoarthritis, right knee; M25.561 Pain in right knee
CPT/HCPCS: 77073; G0463

== ENCOUNTER 2017-01-24 20:46 | Emergency (ER) | payer MEDICARE, OTHER ==
[~2017-01-24] VITALS: Ht 167.6 cm; Wt 59.0 kg
[2017-01-24 20:59] VITALS: Ht 167.6 cm; Wt 59.0 kg
--- NOTE | 2017-01-24 23:09 | RADRPT ---
PROCEDURE: US right lower extremity veins. CLINICAL INDICATION: Right leg pain and swelling. Right knee replacement. TECHNIQUE: Multiple longitudinal and transverse images of the right lower extremity veins were obt ained with snow scale and color Doppler imaging. The common femoral vein, femoral vein, and poplitea l vein were evaluated. 2D grayscale measurements with compression sonography, pulsed Doppler, color Doppler, and pulsed Doppler with augmentation. COMPARISON: No prior studies are available for comparison. FINDINGS: The right common femoral, femoral and popliteal veins are normally compressible throughout. Color f low demonstrates normal filling of the vessels. Normal waveforms are visualized and there is normal response to augmentation. There is subcutaneous adipose tissue edema. IMPRESSION: 1. No evidence of deep vein thrombosis involving the right lower extremity. RPTAT: QQ .Bigg Ro MD, Date Time Electronically viewed and signed by .Bigg Ro MD, on 01/24/2017 23:08 .R/
--- NOTE | 2017-01-25 03:37 | ERD ---
ER Documentation Chief Complaint Date/Time DATE: 01/25/17 TIME: 03:33 Chief Complaint Pt reports wants US of R knee r/t swelling HPI This is a 66-year-old female with a history of kidney transplant, on dialysis Friday and Friday, heart disease presenting to the emergency department stating that she had a total knee replacement of the right knee on January 14, 2017 which was brought couple weeks ago and she was referred by ultrasound of the right calf to rule out a deep vein thrombosis. Patient states that she has had swelling of the right calf the past week. She denies any pain in the calf only when she lets her leg hanging down without any support. Patient denies any fevers. Patient denies taking any blood thinners ROS All systems reviewed and are negative except as per history of present illness. Medications Home Meds Active Scripts Tramadol HCl (Tramadol HCl) 50 Mg Tablet, 50 MG PO Q6 for 30 Days, #60 TAB Prov:LUISA WYLIE PA-C 01/16/17 Oxycodone Hcl* (IR) (Roxicodone*) 5 Mg Tab, 5 MG PO Q4H Y for PAIN LEVEL 1-3 for 30 Days, #60 TAB Prov:LUISA WYLIE PA-C 01/16/17 Pregabalin* (Lyrica*) 25 Mg Capsule, 50 MG PO BID for 30 Days, #60 CAP Prov:LUISA WYLIE PA-C 01/16/17 Aspirin (Aspir-Lynne) 325 Mg Tablet., 325 MG PO BID for 42 Days, #84 Prov:LUISA WYLIE PA-C 01/16/17 Reported Medications Fe Fumarate/Dixie/FA/Bcomp,C (Nephron FA Tablet) 1 Each Tablet, 1 EACH PO DAILY, TAB 01/14/17 Simvastatin* (Zocor*) 20 Mg Tablet, 20 MG PO QHS, #30 TAB 01/14/17 Prednisone* (Prednisone*) 1 Mg Tablet, 1 MG PO DAILY, TAB 01/14/17 Amlodipine Besylate* (Amlodipine Besylate*) 10 Mg Tablet, 10 MG PO DAILY, #30 TAB 01/14/17 Calcium Acetate* (Calcium Acetate*) 667 Mg Capsule, 667 MG PO WITH MEALS, CAP 08/30/14 Levothyroxine Sodium* (Levothyroxine Sodium*) 125 Mcg Tablet, 125 MCG PO AC BREAKFAST, TAB 08/30/14 Carvedilol* (Carvedilol*) 12.5 Mg Tablet, 12.5 MG PO BID, TAB 08/30/14 Hydralazine Hcl* (Hydralazine Hcl*) 50 Mg Tab, 50 MG PO QID, TAB 08/30/14 Pantoprazole* (Pantoprazole*) 40 Mg Tablet.dr, 40 MG PO DAILY, TAB 08/30/14 Allergies Allergies: Coded Allergies: codeine (Unverified Allergy, Unknown, VOMITING, 01/13/17) acetaminophen (Unverified Adverse Reaction, Unknown, VOMITTING, 08/30/14) hydrocodone (Unverified Adverse Reaction, Unknown, VOMITTING, 08/30/14) PMhx/Soc History of Surgery: Yes (RIGHT TOTAL KNEE REPLACEMENT 01/14/17, LEFT KIDNEY TRANSPLANT) Anesthesia Reaction: No Hx Neurological Disorder: No Hx Respiratory Disorders: No Hx Cardiac Disorders: Yes (hypertension and hx of fluid on her chest) Hx Psychiatric Problems: No Hx Miscellaneous Medical Probl: Yes (ESRD, renal transplant, hemodialysis, HTN , arthritis) Hx Alcohol Use: No Hx Substance Use: No Hx Tobacco Use: No Smoking Status: Never smoker Physical Exam Vitals Vital Signs Date Time Temp Pulse Resp B/P Pulse Ox O2 Delivery O2 Flow Rate FiO2 01/24/17 20:59 98.9 72 20 139/67 97 Physical Exam General: WD/WN, in no apparent distress, non-toxic appearing HENT: NC/AT Eyes: Conjunctiva normal Neck: Supple Pulm: Clear to auscultation, normal labored breathing; no wheezing/rales/ rhonchi heard CV: Good capillary refill GI: Non-distended, no guarding Back: No masses Ext: Right knee has Steri-Strips with vertical incision underneath, there is no erythema or induration of the right knee. Patient had moderate swelling of her lower extremity, negative Homans sign Neuro: Moves on all fours Skin: intact Psych: Normal mood Procedures/MDM This is a 66-year-old female with a history of kidney transplant, on dialysis Friday and Friday, heart disease presenting to the emergency department stating that she had a total knee replacement of the right knee on January 14, 2017 which was brought couple weeks ago and she was referred by ultrasound of the right calf to rule out a deep vein thrombosis. Venous ultrasound of the right lower extremity was done and did not show any evidence of deep vein thrombosis. There was no evidence of cellulitis or septic joint. Patient is suitable to follow-up with her surgeon or further action management. I discussed with patient to return to the emergency room for any worsening signs or symptoms. Patient understood and agreed plan Departure Diagnosis: Primary Impression: Knee pain Condition: Stable Patient Instructions: Reducing Knee Pain and Swelling Referrals: KIM BEAUCHAMP MD Additional Instructions: FOLLOW UP WITH AND YOUR PRIMARY CARE PHYSICIAN TOMORROW.Return to this facility if you are not improving as expected. Return to this facility if you are not improving as expected. CHRIS SNEED PA-C Jan 25, 2017 03:37
== END 2017-01-25 00:09 | disposition home or self-care (01) ==
LOC: FTE 20:46
DX: T81.89XA Other complications of procedures, not elsewhere classified, initial encounter (principal); I12.0 Hypertensive chronic kidney disease with stage 5 chronic kidney disease or end stage renal disease; N18.6 End stage renal disease; Y79.2 Prosthetic and other implants, materials and accessory orthopedic devices associated with adverse incidents; Z99.2 Dependence on renal dialysis; Z79.82 Long term (current) use of aspirin
CPT/HCPCS: 93971; 99284

== ENCOUNTER → 2017-01-24 | Outpatient (CLI) | payer MEDICARE, OTHER ==
[~2017-01-24] MED LIST changes: +AMLO-147 PO; +ASPI325T32 PO; -CALC600T PO; -CNC30T PO; +FE F1TAB7 PO; +LYRI25 PO; -NIFE30TA60 PO; +OXYC-481 PO; +PRED1TAB2 PO; -PRED5 PO; -ROSU20TA PO; +SIMV20TA PO; +TRAM50TA2 PO; -[UNRECOGNIZED DRUG - CODE] PO
--- NOTE | 2017-01-24 13:35 | HKNOTE ---
DATE OF SERVICE: 01/24/2017 [facility] NOTE: INTERVAL HISTORY: The patient presents today for her first postoperative evaluation. She is 10 days status post right total knee arthroplasty. She is doing satisfactory overall. She has been having some right knee pain and swelling to her right leg. She has not begun home health physical therapy at this point yet. The patient undergoes hemodialysis on Mondays and Fridays, and is scheduled to undergo today. She denies any fevers or chills. She denies any erythema or warmth otherwise. She has not been taking the pain medicine, as she does not like the adverse effects. She presents today for her first postoperative evaluation. PHYSICAL EXAMINATION: On exam today, she is alert and oriented x4, in no acute distress. She is ambulating with a front-wheel walker. Examination of the incision demonstrates it to be clean, dry and intact. She does have some ecchymosis behind the leg as well as on her anterior knee. She does have notable 2 to 3+ pitting edema diffusely of the right lower extremity. Compartments are otherwise soft. Homans sign is negative. She is neurovascularly intact distally. Range of motion is limited secondary to pain. IMAGING: X-rays of the right knee were obtained today and reviewed by me. They demonstrate good anatomic alignment of the prosthesis. There is no fracture or dislocation identified. ASSESSMENT: Ten days status post right total knee arthroplasty. PLAN: The luis were removed today and Steri-Strips were applied. She is to continue taking aspirin 325 mg twice daily for DVT prophylaxis. She will take those for a period of 6 weeks in total. Due to the amount of soft tissue swelling of her right leg, I would like to obtain a stat Doppler to rule out DVT. She is scheduled to undergo hemodialysis today and will perform this as normal. She will go to the emergency room at [facility] for her ultrasound. If it is negative, we will see her back in 4 weeks for a repeat evaluation. She is to call the office at any time if she has any concerns. Dictated By: LUISA STRICKLAND for KIM WARD/RONALD Conf#: [id number] DID#: [id number]
--- NOTE | 2017-01-24 14:13 | RADRPT ---
PROCEDURE: XR right knee. CLINICAL INDICATION: Postop. TECHNIQUE: AP and lateral views are available for review. COMPARISON: 01/14/2017 FINDINGS: There is a constrained total knee replacement with long tibial and femoral stems. There is no eviden ce of loosening of the prosthesis. There is no evidence of hardware failure. The majority of the ant ibiotic beads have resorbed The osseous structures are normal in mineralization, architecture and al ignment No acute fracture or dislocation is seen.No osseous lesions are identified. The soft tissue s are unremarkable . anterior skin luis unchanged. IMPRESSION: Unremarkable constrained total knee replacement with long tibial and femoral stem. RPTAT: HGDB .Shukri Sands MD, MD Date Time Electronically viewed and signed by .Shukri Sands MD, on 01/24/2017 14:13 .B/
== END | disposition home or self-care (01) ==
LOC: HKI 10:31
PROVIDERS: ATTEND Orthopaedic Surgery
DX: Z47.1 Aftercare following joint replacement surgery (principal); Z96.651 Presence of right artificial knee joint

== ENCOUNTER → 2017-02-19 | Outpatient (CLI) | payer MEDICARE, OTHER ==
[~2017-02-19] MED LIST changes: -APR50 PO; +HYDR-3672 PO
== END | disposition home or self-care (01) ==
LOC: HKI 10:16
PROVIDERS: ATTEND Orthopaedic Surgery
DX: Z47.1 Aftercare following joint replacement surgery (principal); Z96.651 Presence of right artificial knee joint

== ENCOUNTER → 2017-04-02 | Outpatient (CLI) | payer MEDICARE, OTHER ==
--- NOTE | 2017-04-02 16:16 | RADRPT ---
PROCEDURE: XR right knee . CLINICAL INDICATION: Knee pain TECHNIQUE: Three views are available for review. COMPARISON: 01/24/2017 FINDINGS: There is a constrained total knee replacement with long tibial and femoral stems. There is no eviden ce of loosening of the prosthesis. There is no evidence of hardware failure. The osseous structures are normal in mineralization, architecture and alignment No acute fracture or dislocation is seen. N o osseous lesions are identified. The soft tissues are unremarkable. IMPRESSION: Unremarkable constrained total knee replacement with long tibial and femoral stem. RPTAT: HGDB .Shukri Sands MD, Date Time Electronically viewed and signed by .Shukri Sands MD, on 04/02/2017 16:15 .B/
== END | disposition home or self-care (01) ==
LOC: HKI 10:14
PROVIDERS: ATTEND Orthopaedic Surgery
DX: M16.11 Unilateral primary osteoarthritis, right hip (principal); Z96.651 Presence of right artificial knee joint; Z47.1 Aftercare following joint replacement surgery; I12.0 Hypertensive chronic kidney disease with stage 5 chronic kidney disease or end stage renal disease; N18.6 End stage renal disease; Z99.2 Dependence on renal dialysis; E03.9 Hypothyroidism, unspecified; E78.00 Pure hypercholesterolemia, unspecified